=== PATIENT | female | born 1975 | race Caucasian/White ===

== ENCOUNTER 2020-02-19 14:40 | Emergency (ER) | payer OTHER ==
[~2020-02-19] VITALS: Ht 165.1 cm; Wt 77.2 kg
[2020-02-19 15:42] VITALS: BP 125/70
[2020-02-19] MEDS ORDERED: TETRACAINE 0.5% OPHTH SOLUTION 4ML BOTTLE. OS ONE (16:45)
[2020-02-19] MEDS ORDERED: FLUORESCEIN OPHTH TEST STRIP. OS ONE (16:45)
--- NOTE | 2020-02-19 17:03 | PHYS DOC ---
Past Medical History Past Medical History: Other Additional Past Medical Histor: PTSD Past Surgical History: Hysterectomy Smoking Status: Never Smoker Alcohol Use: Rarely General Adult EDM: Chief Complaint: EYE PROBLEMS HPI: HPI: Patient is a 44 year old female who presents with 2 days ago went to an urgent care because her left eye was reddened and it was burning and she wake up with a crusting eye. She states that they gave her polymyxin eyedrops and it lang when she applies them in her eye does not seem to be getting better. Patient denies injury to the eye or getting anything in the eye. She states it is very itchy. She states that is hard to open her eye because it is painful and it lang when she opens the eye. States the vision is slightly blurred. Review of Systems: Review of Systems: Eyes: Denies change in visual acuity. Eye burning and redness. [] Heart Score: Risk Factors: Risk Factors: DM, Current or recent (<one month) smoker, HTN, HLP, family histo ry of CAD, obesity. Risk Scores: Score 0 - 3: 2.5% MACE over next 6 weeks - Discharge Home Score 4 - 6: 20.3% MACE over next 6 weeks - Admit for Clinical Observation Score 7 - 10: 72.7% MACE over next 6 weeks - Early Invasive Strategies Current Medications: Current Medications Medications (Trade) Dose Ordered Sig/Vy Start Time Stop Time Status Last Admin Dose Admin Fluorescein Sodium (Ful-Emy) 1 strip 1X ONCE 02/19/20 16:45 02/19/20 16:46 DC 02/19/20 16:46 1 STRIP Tetracaine HCl (Tetracaine) 1 drop 1X ONCE 02/19/20 16:45 02/19/20 16:46 DC 02/19/20 16:46 1 DROP Allergies: Allergies: Allergies Coded Allergies Type Severity Reaction Last Updated Verified No Known Drug Allergies 02/19/20 No Physical Exam: PE: Constitutional: Well developed, well nourished, no acute distress, non-toxic appearance. [] HENT: Normocephalic, atraumatic, bilateral external ears normal, oropharynx moist, no oral exudates, nose normal. [] Eyes: PERRLA, EOMI, conjunctiva red, watering and yellow discharge. [] Neck: Normal range of motion, no tenderness, supple, no stridor. [] Cardiovascular:Heart rate regular rhythm, no murmur [] Lungs & Thorax: Bilateral breath sounds clear to auscultation [] Abdomen: Bowel sounds normal, soft, no tenderness, no masses, no pulsatile masses. [] Skin: Warm, dry, no erythema, no rash. [] Back: No tenderness, no CVA tenderness. [] Extremities: No tenderness, no cyanosis, no clubbing, ROM intact, no edema. [] Neurologic: Alert and oriented X 3, normal motor function, normal sensory function, no focal deficits noted. [] Psychologic: Affect normal, judgement normal, mood normal. [] Current Patient Data: Vital Signs: Vital Signs Date Time Temp Pulse Resp B/P (MAP) Pulse Ox O2 Delivery O2 Flow Rate FiO2 02/19/20 15:42 97.5 96 18 125/70 (88) 98 Room Air 97.5 EKG: EKG: [] Radiology/Procedures: Radiology/Procedures: [] Course & Med Decision Making: Course & Med Decision Making Pertinent Labs and Imaging studies reviewed. (See chart for details) No orbital cellulitis seen. PERRLA. Antibiotic changes to Erythromycin. Eye Exam Visual accuity: Eye exam: PERRL, Extraocular muscles intact. No signs of ruptured globe. Sclera clear. Red reflex present. Foreign body: No foreign bodies seen with examination or with lid flip exam. Marky-pen: N/A Fluorescein test: 2 round corneal abrasions to lateral side. Anesthetic: Tetracaine [] Dragon Disclaimer: Dragon Disclaimer: This electronic medical record was generated, in whole or in part, using a voice recognition dictation system. Departure Departure Impression: Primary Impression: Corneal abrasion, left Qualified Codes: S05.02XA - Injury of conjunctiva and corneal abrasion without foreign body, left eye, initial encounter Additional Impression: Conjunctivitis Qualified Codes: H10.32 - Unspecified acute conjunctivitis, left eye Disposition: 01 HOME, SELF-CARE Condition: STABLE Referrals: NO PCP (PCP) Patient Instructions: Conjunctivitis (Viral and Bacterial), Eye - Corneal Ab rasion Additional Instructions: Follow up with a eye doctor in the next week. Use ointment as prescribed. Scripts Hydrocodone/Apap 5-325 (NORCO 5-325 TABLET) 1 Each Tablet 1 TAB PO PRN Q6HRS PRN for PAIN, #6 TAB 0 Refills Prov: ERIC WORRELL APRN 02/19/20 ERIC WORRELL APRN Feb 19, 2020 17:03
[2020-02-19] MEDS ORDERED: HYDR-3164 PO (17:36)
[2020-02-19] MEDS ORDERED: ERYTHROMYCIN 0.5% OPHTH OINTMENT 1GM TUBE. OS ONE (17:45)
== END 2020-02-19 17:54 | disposition home or self-care (01) ==
LOC: ER 14:40
DX: S05.02XA Injury of conjunctiva and corneal abrasion without foreign body, left eye, initial encounter (principal); H10.32 Unspecified acute conjunctivitis, left eye; X58.XXXA Exposure to other specified factors, initial encounter; Y93.89 Activity, other specified; Y92.89 Other specified places as the place of occurrence of the external cause; Y99.8 Other external cause status
CPT/HCPCS: 99283